=== PATIENT | male | born 1945 ===

== ENCOUNTER 2023-04-27 09:25 | Inpatient (IN) | payer MEDICARE, BC ==
[2023-04-27 10:11] LABS: #Eosinphils 0.2 thou/uL (0.0-0.7); #Monocytes 0.7 thou/uL (0.11-0.59); #Neutrophils 5.8 thou/uL (1.40-6.50); %Basophils 0.4 % (0.0-1.0); %Eosinophils 2.1 % (0.0-10.0); %Lymphocytes 16.1 % (21.0-51.0); %Monocytes 8.2 % (0.0-10.0); %Neutrophils 72.9 % (42.0-75.0); Hematocrit 29.7 % (42.0-52.0); Hemoglobin 8.8 g/dL (14.0-18.0); Mean Corpuscular HGB CONC 29.6 g/dL (32.0-36.0); Mean Corpuscular Hemoglobin 27.1 pg (27.0-31.0); Mean Corpuscular Volume 91.4 fl (78.0-98.0); Mean Platelet Volume 11.4 fL (7.4-10.4); Platelet Count 132 10x3/uL (130-400); RBC Distribution Width 16.7 % (11.5-14.5); Red Blood Cell (RBC) Count 3.25 mill/uL (4.70-6.10)
[2023-04-27 10:28] LABS: ALT (SGPT) 20 U/L (8-55); AST (SGOT) 15 U/L (5-34); Albumin 3.6 g/dL (3.4-4.8); Alkaline Phosphatase 110 U/L (40-110); Anion Gap 11 mmol/L (10-20); BUN (Urea Nitrogen) 56 mg/dL (8.4-25.7); Bilirubin, Total 0.3 mg/dL (0.2-1.2); Calc. Creatinine Clearance 0 mL/min (70-130); Calcium 8.8 mg/dL (7.8-10.44); Carbon Dioxide 17 mmol/L (23-31); Chloride 122 mmol/L (98-107); Estimated GFR 40; Globulin 3.4 g/dL (2.4-3.5); Glucose 128 mg/dL (83-110); Sodium 147 mmol/L (136-145)
[2023-04-27 11:26] LABS: Bilirubin Negative (Negative); Blood, Urine Negative (Negative); CAUTI Indications for Culture Alt mental st,lethar; Clarity Turbid (Clear); Glucose, Urine (Dipstick) Greater than 1000 mg/dL (Negative); Ketone, Urine Negative (Negative); Leukocyte 500 Leu/uL (Negative); Nitrite Negative (Negative); Protein, Urine (Dipstick) 30 mg/dL (Neg-Trace); Specific Gravity, Urine 1.017 (1.002-1.036); Squamous Epithelial 0-3 HPF (0-3); Urobilinogen Normal mg/dL (Less than 2); WBC/HPF Greater than 50 HPF (0-3); Yeast-Budding 2+ HPF (None Seen)
[2023-04-27 11:27] LABS: Bacteria/HPF 1+ HPF (None Seen)
[2023-04-27 11:28] LABS: Urine Culture Reflex Yes Yes
[2023-04-27] MEDS ORDERED: cefTRIAXone (ROCEPHIN) 1 GM VIAL ONE (12:20)
[2023-04-27] MEDS ORDERED: Acetaminophen 650 MG Suppository PR PRN (14:42)
[2023-04-27] MEDS ORDERED: Ondansetron PF 4 MG/2 ML Vial IVP PRN (14:42)
[2023-04-27] MEDS ORDERED: Potassium Chloride 40 MEQ in Sodium Chloride 0.45% 1,000 ML IV SCH (15:00)
[2023-04-27 17:39] VITALS: BMI 29.5
[2023-04-27] MEDS: DEXAMETHASONE R EYE SCH ×2 (18:06→20:50)
[2023-04-27] MEDS: TOBRAMYCIN R EYE SCH ×2 (18:06→20:50)
[2023-04-27] MEDS: DorzolamidE/Timolol 2%/0.5% Ophth Soln 10 ml Bottle EA EYE SCH (20:49)
[2023-04-27] MEDS: Ascorbic Acid 500 mg Chewable Tablet PO SCH (20:53)
[2023-04-27] MEDS: Atorvastatin Calcium 40 MG TAB PO SCH (20:53)
[2023-04-27] MEDS: risperiDONE 1 MG TAB PO SCH (20:54)
[2023-04-27 23:32] LABS: Anion Gap 12 mmol/L (10-20); BUN (Urea Nitrogen) 54 mg/dL (8.4-25.7); Calc. Creatinine Clearance 49 mL/min (70-130); Carbon Dioxide 14 mmol/L (23-31); Chloride 125 mmol/L (98-107); Estimated GFR 41; Glucose 79 mg/dL (83-110); Phosphorus 4.5 mg/dL (2.3-4.7); Potassium 3.1 mmol/L (3.5-5.1); Sodium 148 mmol/L (136-145)
[2023-04-28] MEDS: Levothyroxine Sodium 50 MCG TAB PO SCH (05:40)
[2023-04-28] MEDS ORDERED: Dextrose 5% in Water 1,000 ML IV PRN (06:33)
[2023-04-28] MEDS ORDERED: Glucagon 1 MG/ML KIT IM PRN (06:33)
[2023-04-28] MEDS ORDERED: Dextrose 50% Abboject 50 ML SYRINGE SLOW IVP PRN (06:33)
[2023-04-28 06:56] LABS: #Eosinphils 0.2 thou/uL (0.0-0.7); #Monocytes 0.7 thou/uL (0.11-0.59); #Neutrophils 3.9 thou/uL (1.40-6.50); %Basophils 0.4 % (0.0-1.0); %Eosinophils 2.5 % (0.0-10.0); %Lymphocytes 29.8 % (21.0-51.0); %Monocytes 10.2 % (0.0-10.0); %Neutrophils 56.8 % (42.0-75.0); Hematocrit 29.4 % (42.0-52.0); Hemoglobin 8.7 g/dL (14.0-18.0); Mean Corpuscular HGB CONC 29.6 g/dL (32.0-36.0); Mean Corpuscular Hemoglobin 27.2 pg (27.0-31.0); Mean Corpuscular Volume 91.9 fl (78.0-98.0); Mean Platelet Volume 11.5 fL (7.4-10.4); Platelet Count 123 10x3/uL (130-400); RBC Distribution Width 17.2 % (11.5-14.5); White Blood Cell (WBC) Count 6.8 10x3/uL (4.8-10.8)
[2023-04-28 07:22] LABS: Anion Gap 13 mmol/L (10-20); BUN (Urea Nitrogen) 52 mg/dL (8.4-25.7); Calc. Creatinine Clearance 48 mL/min (70-130); Calcium 9.1 mg/dL (7.8-10.44); Carbon Dioxide 15 mmol/L (23-31); Chloride 123 mmol/L (98-107); Estimated GFR 40; Glucose 76 mg/dL (83-110); Sodium 148 mmol/L (136-145)
[2023-04-28] MEDS ORDERED: Dextrose 5 %-0.45 % NaCl 1,000 ML IV SCH (07:30)
[2023-04-28] MEDS ORDERED: Potassium Chloride 20 MEQ in Premix 1 BAG IVPB SCH (09:00)
[2023-04-28] MEDS: Multivit, Therapeutic 1 TAB PO SCH (09:11)
[2023-04-28] MEDS: Zinc Sulfate 220 MG CAP PO SCH (09:11)
[2023-04-28] MEDS: Empagliflozin 25 MG TAB PO SCH (09:11)
[2023-04-28] MEDS: Ferrous Sulfate 325 MG TAB PO SCH (09:11)
[2023-04-28] MEDS: Furosemide 20 MG TAB PO SCH (09:11)
[2023-04-28] MEDS: Ascorbic Acid 500 mg Chewable Tablet PO SCH ×2 (09:11→20:17)
[2023-04-28] MEDS: DorzolamidE/Timolol 2%/0.5% Ophth Soln 10 ml Bottle EA EYE SCH ×2 (09:12→20:17)
[2023-04-28] MEDS: Sotalol HCl 80 MG TAB PO SCH (09:12)
[2023-04-28] MEDS: TOBRAMYCIN R EYE SCH ×3 (09:12→20:17)
[2023-04-28] MEDS: DEXAMETHASONE R EYE SCH ×3 (09:12→20:17)
[2023-04-28] MEDS: Senokot 8.6 MG TAB PO SCH (09:12)
[2023-04-28] MEDS: cefTRIAXone\\ROCEPHIN 1 GM in Sodium Chloride 0.9% 100 ML IVPB SCH (12:09)
[2023-04-28] MEDS: Atorvastatin Calcium 40 MG TAB PO SCH (20:17)
[2023-04-28] MEDS: risperiDONE 1 MG TAB PO SCH (20:17)
[2023-04-29] MEDS: Levothyroxine Sodium 50 MCG TAB PO SCH (06:36)
[2023-04-29 06:46] LABS: #Eosinphils 0.2 thou/uL (0.0-0.7); #Monocytes 0.6 thou/uL (0.11-0.59); %Basophils 0.6 % (0.0-1.0); %Eosinophils 3.2 % (0.0-10.0); %Lymphocytes 23.9 % (21.0-51.0); %Monocytes 9.9 % (0.0-10.0); %Neutrophils 62.1 % (42.0-75.0); Hemoglobin 8.6 g/dL (14.0-18.0); Mean Corpuscular HGB CONC 29.7 g/dL (32.0-36.0); Mean Corpuscular Hemoglobin 26.9 pg (27.0-31.0); Mean Corpuscular Volume 90.6 fl (78.0-98.0); Mean Platelet Volume 11.9 fL (7.4-10.4); White Blood Cell (WBC) Count 6.5 10x3/uL (4.8-10.8)
[2023-04-29 06:56] LABS: Platelet Count 121 10x3/uL (130-400)
[2023-04-29 07:07] LABS: Anion Gap 12 mmol/L (10-20); BUN (Urea Nitrogen) 48 mg/dL (8.4-25.7); Calc. Creatinine Clearance 51 mL/min (70-130); Calcium 8.8 mg/dL (7.8-10.44); Carbon Dioxide 15 mmol/L (23-31); Chloride 121 mmol/L (98-107); Estimated GFR 43; Glucose 151 mg/dL (83-110); Potassium 3.3 mmol/L (3.5-5.1); Sodium 145 mmol/L (136-145)
[2023-04-29 07:48] VITALS: BP 110/74; TEMP 97.8
[2023-04-29] MEDS ORDERED: Potassium Chloride 20 MEQ in Premix 1 BAG IVPB SCH (08:00)
[2023-04-29] MEDS: Multivit, Therapeutic 1 TAB PO SCH (08:37)
[2023-04-29] MEDS: Sotalol HCl 80 MG TAB PO SCH (08:37)
[2023-04-29] MEDS: Furosemide 20 MG TAB PO SCH (08:37)
[2023-04-29] MEDS: Senokot 8.6 MG TAB PO SCH (08:37)
[2023-04-29] MEDS: Empagliflozin 25 MG TAB PO SCH (08:37)
[2023-04-29] MEDS: Zinc Sulfate 220 MG CAP PO SCH (08:37)
[2023-04-29] MEDS: Ferrous Sulfate 325 MG TAB PO SCH (08:37)
[2023-04-29] MEDS: Ascorbic Acid 500 mg Chewable Tablet PO SCH (08:37)
[2023-04-29] MEDS: DorzolamidE/Timolol 2%/0.5% Ophth Soln 10 ml Bottle EA EYE SCH (08:46)
[2023-04-29] MEDS: TOBRAMYCIN R EYE SCH (08:47)
[2023-04-29] MEDS: DEXAMETHASONE R EYE SCH (08:47)
[2023-04-29] MEDS: cefTRIAXone\\ROCEPHIN 1 GM in Sodium Chloride 0.9% 100 ML IVPB SCH (12:14)
[2023-04-29] MEDS ORDERED: Cefdinir 300 MG CAP PO SCH (21:00)
[2023-04-30] MEDS ORDERED: Potassium Chloride 10 MEQ TAB PO SCH (08:00)
== END 2023-04-29 13:20 | DRG 690 ==
LOC: ERS 09:25 → T4-B 15:39 → OBSVTOIN 04-28 08:18
PROVIDERS: ADMIT Internal Medicine; ATTEND Emergency Medicine
DX: N39.0 Urinary tract infection, site not specified (principal); I50.22 Chronic systolic (congestive) heart failure; Z79.899 Other long term (current) drug therapy; I25.10 Atherosclerotic heart disease of native coronary artery without angina pectoris; Z95.1 Presence of aortocoronary bypass graft; E11.9 Type 2 diabetes mellitus without complications; Z95.0 Presence of cardiac pacemaker; N18.9 Chronic kidney disease, unspecified; E11.22 Type 2 diabetes mellitus with diabetic chronic kidney disease; F03.90 Unspecified dementia, unspecified severity, without behavioral disturbance, psychotic disturbance, mood disturbance, and anxiety; Z98.890 Other specified postprocedural states
CPT/HCPCS: 36415; 36416; 51702; 80048; 81001; 83605; 83735; 84100; 85025; 87040; 87086; 93005; 96361; 96374; 96375; 97139; G0378; J0696; J3480; J3490; J7042

== ENCOUNTER 2023-05-05 09:04 | Emergency (ER) | payer BC, MEDICARE ==
[2023-05-05 09:57] LABS: #Eosinphils 0.1 thou/uL (0.0-0.7); #Monocytes 0.5 thou/uL (0.11-0.59); %Basophils 0.4 % (0.0-1.0); %Eosinophils 1.7 % (0.0-10.0); %Lymphocytes 22.5 % (21.0-51.0); %Monocytes 10.7 % (0.0-10.0); %Neutrophils 64.5 % (42.0-75.0); Hematocrit 31.2 % (42.0-52.0); Hemoglobin 9.2 g/dL (14.0-18.0); Mean Corpuscular HGB CONC 29.5 g/dL (32.0-36.0); Mean Corpuscular Hemoglobin 27.1 pg (27.0-31.0); Mean Corpuscular Volume 91.8 fl (78.0-98.0); Mean Platelet Volume 12.6 fL (7.4-10.4); Platelet Count 92 10x3/uL (130-400); White Blood Cell (WBC) Count 4.7 10x3/uL (4.8-10.8)
[2023-05-05 10:00] LABS: Actual Bicarbonate (HCO3v) 16.7 mEq/L (22-28); Base Excess -10.2 mEq/L (-2.0 to +3.0); Calcium, Ionized (venous) 1.25 mmol/L (1.16-1.32); Chloride (VBG) 119 mmol/L (98-106); Hematocrit-VBG 30 % (42.0-52.0); Hemoglobin (Hb) 10.3 g/dL (12.6-17.4); Potassium (VBG) 4.28 mmol/L (3.70-5.30); Sodium 146 mmol/L (133-146)
[2023-05-05] MEDS ORDERED: Piperacillin/Tazobactam 4.5 GM VIAL ONE (10:06)
[2023-05-05 10:09] LABS: INR-International Normal Ratio 1.4; PTT 52.5 sec (22.9-36.1); Prothrombin Time 17.5 sec (12.0-14.7)
[2023-05-05 10:20] LABS: Anion Gap 10 mmol/L (10-20); BUN (Urea Nitrogen) 53 mg/dL (8.4-25.7); Calc. Creatinine Clearance 0 mL/min (70-130); Carbon Dioxide 17 mmol/L (23-31); Chloride 122 mmol/L (98-107); Potassium 4.3 mmol/L (3.5-5.1); Sodium 145 mmol/L (136-145)
[2023-05-05 10:21] LABS: ALT (SGPT) 47 U/L (8-55); AST (SGOT) 31 U/L (5-34); Albumin 3.5 g/dL (3.4-4.8); Alkaline Phosphatase 122 U/L (40-110); Bilirubin, Total 0.2 mg/dL (0.2-1.2); CRP (Inflammatory) 1.22 mg/dL (= or < 0.5); Calcium 8.9 mg/dL (7.8-10.44); Estimated GFR 46; Globulin 3.2 g/dL (2.4-3.5); Glucose 109 mg/dL (83-110); Protein, Total 6.7 g/dL (5.8-8.1)
[2023-05-05 10:35] LABS: SARS-CoV-2 NAA Rapid Test Not Detected (NotDetected)
[2023-05-05] MEDS ORDERED: Vancomycin 1 GM/200 ML (FROZEN) BAG ONE (11:19)
== END 2023-05-05 12:44 | disposition home or self-care (01) ==
LOC: ERS 09:04
DX: J69.0 Pneumonitis due to inhalation of food and vomit (principal); K38.8 Other specified diseases of appendix; T68.XXXA Hypothermia, initial encounter; Z66 Do not resuscitate; I11.0 Hypertensive heart disease with heart failure; I50.9 Heart failure, unspecified; E11.9 Type 2 diabetes mellitus without complications; E78.5 Hyperlipidemia, unspecified; E03.9 Hypothyroidism, unspecified; Z79.4 Long term (current) use of insulin; Z79.899 Other long term (current) drug therapy; Z79.84 Long term (current) use of oral hypoglycemic drugs; Z20.822 Contact with and (suspected) exposure to COVID-19
CPT/HCPCS: 0240U; 70450; 71045; 74177; 80053; 82805; 83605; 83690; 85025; 85610; 85730; 86140; 87040; 87086; 93005; 96361; 96365; 96366; 96367; 99285; J3370; J2543